=== PATIENT | male | born 1965 | race Caucasian/White ===

== ENCOUNTER 2016-08-06 13:07 | Emergency (ER) | payer OTHER ==
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
[~2016-08-06 13:07] MED LIST: AMLODIPINE BESYL5 MG PO; AUGMENTIN875 MG PO; CIPRO PO; CLINDAMYCIN HC300 MG PO; DIAZEPAM PO; DOXYCYCLINE HY100 M1 PO; FLEXERIL PO; FLEXERIL10 M1 PO; FLEXERIL10 MG PO; GABAPENTIN300 MG PO; GABAPENTIN600 MG PO; GABAPENTIN800 MG PO; GLUCOTROL; GLUCOTROL PO; HYDROCODON-ACE1 EAC4 PO; HYDROCODON-ACE1 EAC5 PO; HYDROCODONE-APA1 T30 PO; IBUPROFEN800 MG PO; LANTUS100 U/M1 SUBQ; LANTUS100 U/ML SUBQ; LISINOPRIL; LISINOPRIL20 MG PO; LORCET PLUS TAB1 TA1 PO; LORTAB 7.5-5001 TAB PO; MEDROL PO; METFORMIN HCL500 M1 PO; METFORMIN PO; NIZORAL 2% CREA15 GM TOP; NO MEDICATIONS; OXYCODON HCL-AP1 TA2 PO; PEPCID AC20 MG PO; PERCOCET; PERCOCET PO; PERCOCET5/325 PO; PHENERGAN PR; PRAVACHOL20 MG PO; PREDNISONE PO; PREDNISONE50 MG PO; ROBAXIN500 MG PO; SUBOXONE 8 MG-1 EAC1 SL; TAMIFLU75 MG PO; TRAMADOL HCL50 M1 PO; ULTRAM PO; VOLTAREN75 MG PO; ZESTRIL10 M2 PO; ZITHROMAX PO; [UNRECOGNIZED DRUG - OTHER] PO
== END 2016-08-06 13:10 | disposition home or self-care (01) ==
LOC: CED 13:07
DX: S39.92XA Unspecified injury of lower back, initial encounter (principal); E11.9 Type 2 diabetes mellitus without complications; I10 Essential (primary) hypertension; V49.40XA Driver injured in collision with unspecified motor vehicles in traffic accident, initial encounter; F17.210 Nicotine dependence, cigarettes, uncomplicated; Y93.89 Activity, other specified; Y92.482 Bike path as the place of occurrence of the external cause
CPT/HCPCS: 72100; 96374; 99283; J1170